=== PATIENT | male | born 1980 | race Caucasian/White ===

== ENCOUNTER 2016-05-07 03:27 | Emergency (ER) | payer OTHER ==
--- NOTE | ~2016-05-07 | EKG ---
PATIENT: THANIA BELTRAN UNIT #: [id number] Ventricular Rate: 128 BPM Atrial Rate: 128 BPM P-R Interval: 146 ms QRS Duration: 88 ms Q-T Interval: 290 ms QTC Calculation(Bezet): 423 ms P [place]: 80 degrees Calculated R [place]: 96 degrees Calculated T [place]: 61 degrees Diagnosis Line: Sinus tachycardia Diagnosis Line: Right atrial enlargement Diagnosis Line: Rightward axis Diagnosis Line: Pulmonary disease pattern Diagnosis Line: Abnormal ECG Diagnosis Line: No previous ECGs available Diagnosis Line: Confirmed by CHALO DAVEY MD ([id number]) on 05/08/2016 Diagnosis Line: 6:03:29 PM INTERPRETING MD: TAMICA SCHAFER
--- NOTE | ~2016-05-07 | CR72 ---
[facility]. [facility] A Service of [facility] & [facility] RADIOLOGY TEXT RESULTS PATIENT: THANIA BELTRAN LOCATION: SED : 82 UNIT #: [id number] AGE: [address]: Tarik Joy MD SEX: M ORDER DR: [id number] [place] [id number] E MR#: [id number] Acc #: [id number] NAME: THANIA BELTRAN : 1980 SEX: M STUDY DATE/TIME: 05/07/2016 3:30 UNIT: SED ROOM: STUDY DESCRIPTION: CR Chest Single View Portable Attending Physician: Tarik Joy M.D. Ordering Physician: Tarik Joy M.D. Primary Care Physician: Primary Care Physician No MEDICAL IMAGING REPORT This report is preliminary unless electronic signature is present. EXAM Portable AP view of the chest COMPARISON May 11, 2015. INDICATIONS 35-year-old male with acute chest pain since this morning. Current tobacco use. FINDINGS Nipple shadows are noted over the lower chest bilaterally. There is no evidence of pneumothorax, pleural effusion or acute airspace disease. Cardiomediastinal silhouette is normal. IMPRESSION No acute radiographic abnormality. Dictated by... Tres Beltran M.D. THIS IS AN ELECTRONICALLY VERIFIED REPORT Tres Beltran M.D. at 05/10/2016 10:31 PM Kemar TD: 05/07/2016 09:15 JOB #: [id number] MEDICAL IMAGING REPORT
[2016-05-07 03:19] LABS: BASOPHIL# 0.1 X10e3 (0.0-0.3); BASOPHIL% 0.6 % (0.0-2.5); EOSINOPHIL# 0.1 X10e3 (0.0-0.7); EOSINOPHIL% 1.1 % (0.0-7.0); HEMATOCRIT 47.5 % (38.0-50.0); HEMOGLOBIN 16.1 gm/dl (13.0-17.0); LYMPHOCYTE# 3.2 X10e3 (1.0-3.5); LYMPHOCYTE% 29.2 % (17.0-45.0); MEAN CELL VOLUME 88.7 FL (83-96); MEAN CORPUSCULAR HEMOGLOBIN 30.1 PG (28-34); MEAN CORPUSCULAR HGB CONC 33.9 g/dL (30-36); MEAN PLATELET VOLUME 8.4 FL (6.5-11.5); MONOCYTE# 0.8 X10e3 (0.0-1.0); MONOCYTE% 7.4 % (3.0-12.0); NEUTROPHIL# 6.6 X10e3 (1.5-7.1); NEUTROPHIL% 61.7 % (40.0-75.0); PLATELET COUNT 285 X10e3 (140-420); RED BLOOD COUNT 5.36 X10e6 (3.90-5.60); RED CELL DISTRIBUTION WIDTH 12.5 % (11.0-15.5); WHITE BLOOD COUNT 10.8 X10e3 (4.0-10.5)
[2016-05-07 03:20] LABS: DIFF IND NO
[2016-05-07 03:26] LABS: INR 0.9; PROTHROMBIN TIME (PATIENT) 10.5 SECONDS (9.5-12.4)
[~2016-05-07 03:27] MED LIST: AMOXICILLIN500 M1 PO; BENTYL20 MG PO; BUPROPION HCL150 M1 PO; GLUCOPHAGE500 MG PO; GLUCOTROL PO; HYDROCODON-ACE1 EACH PO; LANTUS100 U/ML SUBQ; LANTUS100 UNITS/ SUBQ; LISINOPRIL10 MG PO; LISINOPRIL5 MG PO; METFORMIN HCL1000 M1 PO; NOVOLOG100 U/M1 SQ; NOVOLOG100 U/ML; NOVOLOG100 U/ML SUBQ; VOLTAREN50 MG PO
[2016-05-07 03:33] LABS: PARTIAL THROMBOPLASTIN TIME 27.4 SECONDS (25.6-38.1)
[2016-05-07 03:39] LABS: POC - CKMB 1.6 ng/mL (0.0-7.9); POC - TROPONIN <0.05 ng/mL (<=0.05)
[2016-05-07 03:40] LABS: ALBUMIN SERUM 4.6 g/dL (3.5-5.0); ALKALINE PHOSPHATASE 111 U/L (32-92); ALT (SGPT) 64 U/L (10-40); AST (SGOT) 44 U/L (10-42); BILIRUBIN, DIRECT 0.1 mg/dL (0.0-0.2); BILIRUBIN,INDIRECT 0.2 mg/dL (0.0-0.9); BILIRUBIN,TOTAL 0.3 mg/dL (0.2-2.0); BLOOD UREA NITROGEN 17 mg/dL (9-23); BUN/CREATININE RATIO 21.25; CALCIUM SERUM 9.3 mg/dL (8.4-10.2); CARBON DIOXIDE 29 mmol/L (22-31); CHLORIDE 92 mmol/L (100-111); CREATININE SERUM 0.8 mg/dL (0.6-1.4); GLOM FILT RATE Estimated ABOVE60 mL/min (>60); GLUCOSE FASTING 55 mg/dL (70-110); PROTEIN TOTAL SERUM 7.7 g/dL (6.0-8.3); SODIUM 129 mmol/L (135-145)
[2016-05-07 03:41] LABS: POTASSIUM 2.9 mmol/L (3.5-5.1)
[2016-05-07 03:59] LABS: URINE SOURCE CLEAN CATCH
[2016-05-07 04:02] LABS: MICRO INDICATED? NO; URINE APPEARANCE CLEAR; URINE BILIRUBIN NEG (NEG); URINE BLOOD NEG (NEG); URINE COLOR YELLOW; URINE GLUCOSE 300 MG/DL (NORM); URINE KETONE TRACE (NEG); URINE LEUKOCYTE ESTERASE NEG (NEG); URINE NITRATE NEG (NEG); URINE PH 5.5 (5-8); URINE PROTEIN NEG (NEG); URINE UROBILINOGEN 0.2 MG/DL (NORM)
[2016-05-07 04:12] LABS: AMPHETAMINE POS (NEG); BARBITURATES NEG (NEG); BENZODIAZEPINES NEG (NEG); COCAINE NEG (NEG); MARIJUANA NEG (NEG); OPIATES NEG (NEG); TRICYCLIC ANTIDEPRESSANTS NEG (NEG); U METHADONE NEG (NEG)
== END 2016-05-07 04:49 | disposition home or self-care (01) ==
LOC: SED 03:27
PROVIDERS: Emergency Medicine
DX: F41.9 Anxiety disorder, unspecified (principal); F15.10 Other stimulant abuse, uncomplicated; R07.9 Chest pain, unspecified; E87.5 Hyperkalemia; E11.9 Type 2 diabetes mellitus without complications; I10 Essential (primary) hypertension; F17.200 Nicotine dependence, unspecified, uncomplicated; Z79.4 Long term (current) use of insulin
CPT/HCPCS: 36415; 71010; 80048; 80076; 80307; 81003; 82553; 82947; 83735; 83874; 84484; 85025; 85610; 85730; 93005; 96361; 96374; 99284; J2060